=== PATIENT | female | born 1975 | race Caucasian/White ===

== ENCOUNTER 2021-03-25 23:48 | Emergency (ER) | payer OTHER ==
[~2021-03-25 23:48] MED LIST: Sodium Chloride 0.9% 1000 ML 1,000 ML ONE
[2021-03-25] MEDS ORDERED: SODIUM BICARBONATE 50 MEQ/50 ML ABBOJECT IV ONE (23:49)
[2021-03-25] MEDS ORDERED: EPINEPHRINE ABBOJECT 1 MG IV ONE (23:49)
[2021-03-25] MEDS ORDERED: Cordarone 150 MG/3 ML Injection IJ ONE (23:49)
[2021-03-26] MEDS ORDERED: Magnesium Sulfate 1 GM/2 ML VIAL ONE
[2021-03-26 00:10] LABS: Hemoglobin 9.2 gm/dl (12.0-16.0); Mean Corpuscular Hemoglobin 31.3 pg (26-32); Mean Corpuscular Hgb Concent. 30.7 g/dl (32-36); Mean Platelet Volume 10.3 fl (7.5-11.0); Platelet Count 479 K/mm3 (150-450); Red Blood Count 2.94 M/mm3 (4.1-5.4); Red Cell Distribution Width 15.1 % (11.5-14.0)
--- NOTE | 2021-03-26 00:18 | ERPHSYRPT ---
- History of Present Illness Time Seen by Provider: 03/26/21 00:03 Source: EMS, old records Exam Limitations: clinical condition Physician History: This is a morbidly obese 45-year-old white female who, per 's report, has been ill for several weeks. Today, patient was very weak. This evening, prior to arrival, the patient could not even get up and move. EMS was contacted and there was a witnessed arrest by EMS. CPR was started because of no spontaneous breath sounds and no palpable pulse. Patient was found to be in asystole when CPR was started. Patient maintained the asystole rhythm upon arrival into the emergency department. Patient had no palpable pulse, heart rhythm was in asystole, she had no audible heart tones and no spontaneous breath sounds. Her pupils were dilated fixed. Patient had an LMA in place. Patient has a history of hypertension and diabetes. Her blood sugar level read high when checked by EMS. Timing/Duration: today Activities at Onset: none Severity of Pain-Max: none Severity of Pain-Current: none Aspirin Treatment Today: no aspirin today Associated Symptoms: other (Patient unresponsive) Allergies/Adverse Reactions: No Known Drug Allergies Allergy (Unverified 09/03/15 08:25) Home Medications: Allopurinol 100 mg [Zyloprim 100 mg] 100 mg PO HS 09/04/15 [History] Loratadine 10 mg [Claritin 10 mg] 1 tab PO DAILY 09/04/15 [History] Metformin HCl 850 mg [Glucophage 850 MG] 850 mg PO BID 09/04/15 [History] Naproxen Sodium 220 mg [Aleve 220 MG] 1 tab PO TID 09/04/15 [History] Travel Risk - International Travel Have you traveled outside of the country in past 3 weeks: No - Coronavirus Screening Are you exhibiting any of the following symptoms?: No Close contact with a COVID-19 positive Pt in past 14-21 Days: No - Vaccine Status Have you recieved a Covid-19 vaccination: No - Review of Systems Constitutional: Weakness Eyes: Other (Patient unresponsive) Ears, Nose, & Throat: Other (Patient unresponsive) Respiratory: Other (Patient unresponsive) Cardiac: Other (Patient unresponsive) Abdominal/Gastrointestinal: Other (Patient unresponsive) Genitourinary Symptoms: Other (Patient unresponsive) Musculoskeletal: Other (Patient unresponsive) Skin: Other (Patient unresponsive) Neurological: Other (Patient unresponsive) Psychological: Other (Unresponsive) Endocrine: Other (Patient unresponsive) Hematologic/Lymphatic: Other (Patient unresponsive) Immunological/Allergic: Other (Unresponsive) All Other Systems: Reviewed and Negative, Unable due to condition - Past Medical History Pertinent Past Medical History: Yes Neurological History: No Pertinent History ENT History: No Pertinent History Cardiac History: No Pertinent History Respiratory History: No Pertinent History Endocrine Medical History: Diabetes Type II Musculoskeletal History: Arthritis GI Medical History: No Pertinent History History: No Pertinent History Psycho-Social History: No Pertinent History Female Reproductive Disorders: No Pertinent History - Past Surgical History Past Surgical History: Yes Neuro Surgical History: No Pertinent History Cardiac: No Pertinent History Respiratory: No Pertinent History Gastrointestinal: Other Genitourinary: No Pertinent History Musculoskeletal: No Pertinent History Female Surgical History: No Pertinent History Other Surgical History: I&D of abdominal abcess - Social History Smoking Status: Never smoker Exposure to second hand smoke: No Drug Use: none - Female History Hx Now: No - Physical Exam General Appearance: obese, other (Unresponsive with LMA placed. CPR in progress) Eye Exam: other (Bilateral pupils were fixed and dilated. No response to light examination) Ears, Nose, Throat Exam: other (LMA in place) Neck Exam: normal inspection, non-tender, supple, full range of motion Respiratory Exam: rhonchi (No spontaneous breath sounds bilateral diffuse with bagging), other Cardiovascular Exam: other (No palpable pulses no spontaneous heart tones) Gastrointestinal/Abdomen Exam: soft, other (Obese) Pelvic Exam: not done Rectal Exam: not done Extremity Exam: other (No extremity movements) Neurologic Exam: other (Patient unresponsive) Skin Exam: pale Lymphatic Exam: No adenopathy SpO2 Interpretation: hypoxic O2 Delivery: Ambu-Bag Procedures - Intubation Time of Intubation: 00:25 Intubation Method: orotracheal, glidescope Tube Size (cm): 7.0 Endotracheal Tube Confirmation: bilateral breath sounds, positive end tidal CO2 Intubation Complications: no complications Performed By: ED Physician Post Intubation Xray: Yes Progress/X-ray Impression: 03/26/21 00:25 ET tube was within the trachea just at the level of bifurcation. ET tube was then pulled back approximately 2 cm. Ordered Tests: Active Orders 24 hr Category Date Time Status Clinical Research Analyst STAT Care 03/26/21 00:02 Active Catheter-Eolia Kaur STAT Care 03/26/21 00:01 Active EKG-ER Only STAT Care 03/26/21 00:01 Active IV Insertion STAT Care 03/26/21 00:01 Active Pulse Oximetry (ED) STAT Care 03/26/21 00:01 Active BLOOD CULTURE Stat Lab 03/26/21 00:02 Ordered CBC W DIFF Stat Lab 03/26/21 00:01 Ordered CMP Stat Lab 03/26/21 00:01 Ordered CULTURE,URINE Stat Lab 03/26/21 00:02 Ordered D-DIMER QUANTITATIVE Stat Lab 03/26/21 00:01 Ordered LIPASE Stat Lab 03/26/21 00:01 Ordered Lactic Acid Stat Lab 03/26/21 00:01 Ordered MAGNESIUM Stat Lab 03/26/21 00:01 Ordered NT PRO BNP Stat Lab 03/26/21 00:01 Ordered TROPONIN Q3H Lab 03/26/21 00:15 Ordered TROPONIN Q3H Lab 03/26/21 03:15 Ordered TROPONIN Q3H Lab 03/26/21 06:15 Ordered TROPONIN Q3H Lab 03/26/21 09:15 Ordered TROPONIN Q3H Lab 03/26/21 12:15 Ordered UA W/RFX UR CULTURE Stat Lab 03/26/21 00:02 Ordered Medication Summary Discontinued Medications Generic Name Dose Route Start Last Admin Trade Name Darrylq PRN Reason Stop Dose Admin Magnesium Sulfate Confirm 03/26/21 00:00 Magnesium Sulfate 1 Gm/2 Ml Vial Administered 03/26/21 00:01 Dose 2 gm .ROUTE .STK-MED ONE - Progress Progress: unchanged Air Movement: poor Progress Note: 03/26/21 00:26 Patient did not respond to multiple doses of epinephrine, at least 4 defibrillations, sodium bicarb, amiodarone, lidocaine, magnesium. We called the code at 1217 which was 47 minutes after the witnessed arrest and CPR began. There is no change in this patient's condition. I spoke with the patient's and the patient's sister by phone. We did attempt another round just prior to calling the code arrest and the patient did not change. Therefore, the decided to have a stop CPR and the code process Blood Culture(s) Obtained: Yes Antibiotics given: No Counseled pt/family regarding: lab results, diagnosis, rad results - Departure Departure Disposition: Clinical Impression: Cardiopulmonary arrest, Endotracheally intubated Condition: Critical Care Time: Yes Critical Care Time(excluding separately billable procedures): Critical 30-74 mins Referrals: RUFUS TOWNSEND MD [Primary Care Provider] -
[2021-03-26 00:19] LABS: White Blood Count 33.7 K/mm3 (4.0-10.5)
[2021-03-26 00:24] LABS: Creatinine 1 7.2 mg/dL (0.52-1.04); EST GLOMERULAR FILTRATION RATE 6.5 ML/MIN
[2021-03-26 00:26] LABS: ALBUMIN 3.5 g/dL (3.5-5.0); ANION GAP 31.2 MEQ/L (5-15); BILIRUBIN,TOTAL 1.2 mg/dL (0.2-1.3); Calcium 10.5 mg/dL (8.4-10.2); MAGNESIUM 3.7 mg/dL (1.6-2.3); Total Protein 8.8 g/dL (6.3-8.2)
[2021-03-26 00:29] LABS: Potassium 8.8 mmol/L (3.5-5.1)
[2021-03-26 02:06] LABS: BAND 8 % (0.0-2.0); Eosinophil 1 % (0.00-3.0); Lymphocytes 16 % (24-44); Metamyelocyte 1 %; Monocyte 6 % (0.0-12.0); Neutrophils 68 % (36.0-66.0); Platelet Estimate INCREASED (NORMAL); Total Cells Counted 100
[2021-03-26 03:47] VITALS: PULSE 0
--- NOTE | 2021-03-26 07:27 | XRAY ---
Indication: Cardiac arrest. Comparison: None Portable chest demonstrates endotracheal tube tip at level of bernard directed towards right mainstem bronchus. Lungs underinflated with diffuse bilateral hazy interstitial alveolar opacities. No pneumothorax. Heart is prominent. Bony thorax intact.
== END 2021-03-26 03:46 | disposition expired ==
LOC: ED 23:48
DX: I46.9 Cardiac arrest, cause unspecified (principal); I10 Essential (primary) hypertension; E11.9 Type 2 diabetes mellitus without complications; E66.01 Morbid (severe) obesity due to excess calories; Z79.4 Long term (current) use of insulin
CPT/HCPCS: 31500; 36415; 71045; 80053; 83690; 83735; 83880; 84484; 85025; 85379; 87040; 87077; 87186; 92950; 94799; 96374; 96375; 96376; 99284; 99291; J0171; J0282; J3475